=== PATIENT | male | born 1975 | race Hispanic/Latino ===

== ENCOUNTER 2018-07-06 15:06 | Outpatient (CLI) | payer OTHER ==
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
== END 2018-07-06 15:07 | disposition home or self-care (01) ==
LOC: NAV RAD 15:06
PROVIDERS: ATTEND Family Medicine
DX: M79.642 Pain in left hand (principal)

== ENCOUNTER 2020-03-15 17:21 | Emergency (ER) | payer OTHER ==
[2020-03-15] MEDS ORDERED: Ibuprofen 200 MG TAB ONE (17:47)
[2020-03-15 18:16] LABS: Bilirubin Negative (Negative); Blood, Urine Trace (Negative); Clarity Clear (Clear); Glucose, Urine (Dipstick) Negative (Negative); Ketone, Urine 15 mg/dL (Negative); Leukocyte Negative (Negative); Nitrite Negative (Negative); Protein, Urine (Dipstick) Negative (Neg-Trace); Specific Gravity, Urine 1.025 (1.005-1.030); Urobilinogen 0.2 mg/dL (Less than 2); pH, Urine 5.5 (5.0-9.0)
[2020-03-15 18:23] LABS: Bacteria/HPF None Seen HPF (None Seen); Squamous Epithelial 0-3 HPF (0-3); WBC/HPF None Seen HPF (0-3)
--- NOTE | 2020-03-15 19:12 | CT ---
Exam: Abdomen CT without contrast Pelvic CT without contrast HISTORY: Right lumbar pain, x24 hours. Hematuria. COMPARISON: None FINDINGS: Abdomen CT: Lung bases:Clear Heart size: Normal heart size Aorta: Normal caliber. No periaortic fat stranding. Solid organs: Limited evaluation by the lack of IV contrast. Grossly no solid organ abnormality Lymph nodes: No gastrohepatic, retrocrural or periportal lymphadenopathy Gallbladder: Surgically absent Mesentery: No mass, lymphadenopathy, free air or free fluid Kidneys: Bilaterally, no hydronephrosis, nephrolithiasis or perinephric fat stranding. Bilateral uret ers have a normal caliber. No hydroureter, periureteral fat stranding or ureterolithiasis. Alimentary canal: Limited evaluation by the lack of oral contrast. No small bowel obstruction. Append icolith without evidence of appendicitis. This:. Diverticulosis. No diverticulitis. CT PELVIS: No mass, adenopathy, free air or free fluid. Urinary bladder: Unremarkable. Osseous structures: No lytic or blastic lesions. Grossly the central spinal canal is patent. No evide nce of fractures or malalignment. IMPRESSION: No evidence of obstructive uropathy.
== END 2020-03-15 19:32 | disposition home or self-care (01) ==
LOC: NAV ERS 17:21
DX: M54.5 Low back pain (principal); R31.9 Hematuria, unspecified; E78.5 Hyperlipidemia, unspecified; E78.00 Pure hypercholesterolemia, unspecified; F41.9 Anxiety disorder, unspecified
CPT/HCPCS: 74176; 81003; 81015

== ENCOUNTER 2024-06-08 17:25 | Emergency (ER) | payer SELFPAY ==
[2024-06-08] MEDS ORDERED: Orphenadrine Citrate 60 MG/2 ML VIAL ONE (17:56)
[2024-06-08] MEDS ORDERED: Ketorolac Tromethamine 30 MG (1 mL) VIAL ONE (17:56)
[2024-06-08 18:13] LABS: #Basophils 0.1 thou/uL (0.0-0.2); #Eosinophils 0.1 thou/uL (0.0-0.7); #Lymphocytes 1.9 thou/uL (1.20-3.40); #Monocytes 0.5 thou/uL (0.11-0.59); #Neutrophils 5.5 thou/uL (1.40-6.50); %Basophils 1.1 % (0.0-1.0); %Eosinophils 0.8 % (0.0-10.0); %Lymphocytes 23.4 % (21.0-51.0); %Monocytes 6.7 % (0.0-10.0); Hematocrit 44.4 % (42.0-52.0); Hemoglobin 14.6 g/dL (14.0-18.0); Mean Corpuscular HGB CONC 32.8 g/dL (32.0-36.0); Mean Corpuscular Hemoglobin 28.8 pg (27.0-31.0); Mean Corpuscular Volume 87.9 fl (78.0-98.0); Mean Platelet Volume 7.5 fL (7.4-10.4); Platelet Count 352 10x3/uL (130-400); RBC Distribution Width 11.5 % (11.5-14.5); Red Blood Cell (RBC) Count 5.05 mill/uL (4.70-6.10); White Blood Cell (WBC) Count 8.1 10x3/uL (4.8-10.8)
[2024-06-08 18:20] LABS: Bilirubin Negative (Negative); Blood, Urine Negative (Negative); Clarity Clear (Clear); Glucose, Urine (Dipstick) Negative (Negative); Ketone, Urine Negative (Negative); Leukocyte Negative (Negative); Nitrite Negative (Negative); Protein, Urine (Dipstick) Negative (Neg-Trace); Urobilinogen 0.2 mg/dL (Less than 2)
[2024-06-08 18:30] LABS: ALT (SGPT) 52 U/L (8-55); AST (SGOT) 27 U/L (5-34); Albumin 4.1 g/dL (3.5-5.0); Alkaline Phosphatase 63 U/L (40-110); Anion Gap 14 mmol/L (10-20); BUN (Urea Nitrogen) 12 mg/dL (8.9-20.6); Bilirubin, Total 0.6 mg/dL (0.2-1.2); Calc. Creatinine Clearance 0 mL/min (70-130); Calcium 9.4 mg/dL (7.8-10.44); Carbon Dioxide 23 mmol/L (22-29); Chloride 103 mmol/L (98-107); Estimated GFR 96; Globulin 3.5 g/dL (2.4-3.5); Glucose 125 mg/dL (70-105); Protein, Total 7.6 g/dL (6.0-8.3); Sodium 136 mmol/L (136-145)
[2024-06-08 18:41] LABS: CAUTI Indications for Culture Pelvic or flank pain; Specific Gravity, Urine 1.008 (1.005-1.030); Squamous Epithelial 0-3 HPF (0-3); Urine Culture Reflex No No; WBC/HPF None Seen HPF (0-3)
[2024-06-08] MEDS ORDERED: fentaNYL 50 mcg/mL 1 mL Vial ONE ×2 (18:49→19:20)
== END 2024-06-08 20:30 | disposition home or self-care (01) ==
LOC: NAV ERS 17:25
DX: M54.50 Low back pain, unspecified (principal); E78.00 Pure hypercholesterolemia, unspecified; Z79.899 Other long term (current) drug therapy
CPT/HCPCS: 72128; 72131; 80053; 81001; 85025; 96374; 96375; 96376; J1885; J2360; J3010